=== PATIENT | female | born 1995 | race Two or more races ===

== ENCOUNTER 2017-12-24 23:51 | Emergency (ER) | payer SELFPAY ==
[2017-12-25] MEDS ORDERED: 0.9 % SODIUM CHLORIDE 1000ML 1,000 ML IV SCH (00:15)
[2017-12-25] MEDS ORDERED: SCOPOLAMINE 1 PATCH TDSY TD ONE (00:15)
--- NOTE | 2017-12-25 00:24 | Emergency Department Record ---
History of Present Illness - General Chief complaint: Vomiting Stated complaint: VOMITTING Time Seen by Provider: 12/25/17 00:14 Source: Patient Mode of Arrival: Ambulatory Limitations: No limitations - History of Present Illness Initial comments: 22 yo female presents to ED for evaluation of suprapubic pain and vaginal discharge following recent evaluation in [place] for similar symptoms. Patient reports that her PCP started her on Flagyl and Doxycycline 8 days ago for her symptoms but was seen in [place] for dysuria symptoms and vaginal discharge symptoms as well, pelvic was not performed, and CT Abdomen/Pelvis demonstrated "swelling of the pancreas". Patient reports miscarriage 7-8 weeks ago without retained POC, and patient also reports history of katelynn-fundoplication "that didn't go well resulting in intermittent pancreatitis". MD complaint: Abdominal pain Onset/Timin -: Days(s) Associated Abdominal Pain: Yes Location: Other Severity: Moderate Quality: Cramping Consistency: Constant Improves with: None Worsens with: None Context: History of abdominal surgery, Recent anitbiotic use Associated Symptoms: Denies other symptoms - Related Data Previous Rx's Medication Instructions Recorded Promethazine HCl [Phenergan] 25 mg PO Q8H PRN #10 tablet 12/25/17 Allergies Allergy/AdvReac Type Severity Reaction Status Date / Time amoxicillin Allergy RASH Verified 12/25/17 00:08 ketorolac [From Toradol] Allergy SWELLING Verified 12/25/17 00:08 (GENERAL) latex Allergy RASH Verified 12/25/17 00:08 ondansetron [From Zofran] Allergy SWELLING Verified 12/25/17 00:08 (GENERAL) Penicillins Allergy RASH Verified 12/25/17 00:08 Sulfa (Sulfonamide Allergy RASH Verified 12/25/17 00:08 Antibiotics) metoclopramide [From Reglan] AdvReac Anxiety Verified 12/25/17 00:08 Attack IV Contrast Allergy RASH Uncoded 12/25/17 00:08 Review of Systems Constitutional: Denies: Chills, Fever, Malaise, Night sweats Eyes: Denies: Eye discharge, Eye pain ENT: Denies: Congestion, Ear pain, Epistaxis Respiratory: Denies: Cough, Dyspnea Cardiovascular: Denies: Chest pain, Dyspnea on exertion Endocrine: Denies: Fatigue, Heat or cold intolerance Gastrointestinal: Reports: Abdominal pain, Nausea, Vomiting. Denies: Constipation Genitourinary: Reports: Discharge, Dysuria. Denies: Frequency, Hematuria, Incontinence, Retention Musculoskeletal: Denies: Arthralgia, Back pain, Gout, Joint swelling Skin: Denies: Bruising, Change in color Neurological: Denies: Abnormal gait, Confusion Psychiatric: Denies: Anxiety Hematological/Lymphatic: Denies: Anemia, Blood Clots Physical Exam - General General Appearance: Alert, Oriented x3, Cooperative, Mild distress, Anxious, Other (tearful on examination) Limitations: No limitations - Head Head exam: Atraumatic, Normocephalic, Normal inspection Head exam detail: negative: Abrasion, Contusion, Collado's sign, General tenderness, Hematoma, Laceration - Eye Eye exam: Normal appearance. negative: Conjunctival injection, Periorbital swelling, Periorbital tenderness, Scleral icterus - ENT Ear exam: negative: Auricular hematoma, Auricular trauma Nasal Exam: negative: Active bleeding, Discharge, Dried blood, Foreign body Mouth exam: negative: Drooling, Laceration, Muffled voice, Tongue elevation - Neck Neck exam: Normal inspection. negative: Meningismus, Tenderness - Respiratory Respiratory exam: Normal lung sounds bilaterally. negative: Rales, Respiratory distress, Rhonchi, Stridor - Cardiovascular Cardiovascular Exam: Regular rate, Normal rhythm, Normal heart sounds - GI/Abdominal GI/Abdominal exam: Soft, Tenderness, Other (TTP over the suprapubic region on examination.). negative: Rebound, Rigid - Rectal Rectal exam: Deferred - exam: Vaginal discharge. negative: Vaginal bleeding, Vaginal erythema - Extremities Extremities exam: Normal inspection. negative: Calf tenderness, Pedal edema, Tenderness - Back Back exam: Denies: CVA tenderness (R), CVA tenderness (L) - Neurological Neurological exam: Alert, Normal gait, Oriented X3 - Psychiatric Psychiatric exam: Normal affect, Normal mood - Skin Skin exam: Normal color. negative: Abrasion Type of lesion: negative: abrasion Course Vital Signs 12/25/17 00:04 Temperature 98.7 F Pulse Rate [ 89 Pulse Ox Probe] Respiratory 18 Rate Blood Pressure 139/109 [Left Arm] Pulse Ox 100 - Reevaluation(s) Reevaluation #1: 12/25/17 00:55 Previous records from [place] 12/21/17 were reviewed, CT imaging performed to exclude appendicitis. CT Abdomen and Pelvis 12/21/17 Minimal peripancreatic fat infiltration consistent with mild pancreatitis No psuedocyst formation or pancreatic necrosis Reevaluation #2: 12/25/17 01:25 Labs reviewed and are grossly unremarkable for an acute process. Pelvic examination was reviewed, mild whitish discharge is present. Repeat abdominal examination fails to demonstrate an acute process, and repeat CT imaging is not felt to be of benefit at this time. Will reassess following Pelvic results. Reevaluation #3: 12/25/17 01:42 Pelvic examination was reviewed, positive for Clue Cells (patient is taking Flagyl currently). MDM Patient was updated on all results, and on examination becomes noticeably calmer with a benign repeat abdominal examination. Based on the patient's repeat examination, recent negative CT Abdomen and Pelvis 3 days prior, and negative laboratory evaluation other than clue cells on pelvic examination. Patient is currently taking Flagyl for her infection, but reports that she has not been able to keep her medication down due to vomiting. Will prescribe Phenergan as needed for nausea symptoms with instructions to continue her Flagyl as prescribed. Repeat CT imaging does not appear indicated given her repeat examination and recent negative imaging. US is not currently available nor do I feel would be of benefit for transfer specifically for US imaging given the patient's history and examination. There is no clinical evidence for ovarian torsion as the source of her pain symptoms based on her history of symptoms and examination and no significant cyst visualized on CT to predispose the patient for torsion. Similarly, PID does not appear likely based on the patient's examination and her current treatment with Doxycycline. Patient appears stable for discharge at this time with instructions to follow- up with her PCP in 1-3 days for further evaluation. Medical Decision Making - Lab Data Result diagrams: 12/25/17 00:35 12/25/17 00:35 Disposition Disposition: Discharge Clinical Impression: Pelvic pain Disposition: Home, Self-Care Condition: (2) Stable Instructions: Pelvic Pain in Women (ED) Additional Instructions: Return to ED if your symptoms worsen or if you have any concerns. Phenergan as directed. Follow-up with your family doctor in 1-3 days as directed. Prescriptions: Promethazine HCl [Phenergan] 25 mg PO Q8H PRN #10 tablet PRN Reason: Nausea/Vomiting Forms: Patient Portal Access Time of Disposition: 01:55 Quality - Quality Measures Quality Measures: N/A - Blood Pressure Screening Does Patient Have Any of the Following: No Blood Pressure Classification: Hypertensive Reading Systolic Measurement: 139 Diastolic Measurement: 109 Screening for High Blood Pressure: < First Hypertensive BP, F/U Documented > [ [id number]] First Hypertensive Follow-up Interventions: Referral to alternative/primary care provider.
[2017-12-25] MEDS ORDERED: HYOSCYAMINE SULFATE ODT 0.125 MG TAB.SUBL SL ONE (00:38)
[2017-12-25 00:41] LABS: BASO % 0.4 % (0-6); EOS % 1.9 % (0-6); GRAN % 56.8 % (47-80); HEMATOCRIT 40.2 % (35.0-47.0); HEMOGLOBIN 13.3 gm/dl (11.6-16.0); LYMPH % 35.6 % (16-45); MEAN CELL VOLUME 86.6 fl (81-97); MEAN CORPUSCULAR HEMOGLOBIN 28.7 pg (27-33); MEAN CORPUSCULAR HGB CONC 33.1 g/dl (32-36); MEAN PLATELET VOLUME 9.9 fl (7.4-10.4); MONO % 5.3 % (0-9); PLATELET COUNT 316 K/uL (130-400); RED BLOOD COUNT 4.64 M/uL (3.80-5.40); RED CELL DISTRIBUTION WIDTH 13.8 % (11.5-14.5); WHITE BLOOD COUNT W/O DIFF 10.7 K/uL (4.2-12.2)
[2017-12-25 00:42] LABS: URINE APPEARANCE CLEAR; URINE BILIRUBIN SMALL (NEGATIVE); URINE BLOOD NEGATIVE (NEGATIVE); URINE COLOR YELLOW; URINE GLUCOSE (UA) NEGATIVE (NEGATIVE); URINE KETONE TRACE (NEGATIVE); URINE LEUKOCYTE ESTERASE NEGATIVE (NEGATIVE); URINE NITRITE NEGATIVE (NEGATIVE)
[2017-12-25 00:55] LABS: BLOOD UREA NITROGEN 7 mg/dL (6-20); CREATININE 0.6 mg/dL (0.5-0.9); EST GLOMERULAR FILTRATION RATE > 60 mL/min; TOTAL PROTEIN 7.3 g/dL (6.6-8.7)
[2017-12-25 00:57] LABS: GLUCOSE,RANDOM 97 mg/dL (74-109)
[2017-12-25 01:00] LABS: ALB/GLOB RATIO 1.6 (1.1-1.8); ALBUMIN 4.5 g/dL (4.0-5.0); ALKALINE PHOSPHATASE 60 U/L (35-104); ALT/SGPT 9 U/L (<33); AST/SGOT 14 U/L (10.0-35.0); LIPASE 16 U/L (13-60)
[2017-12-25] MEDS ORDERED: ACETAMINOPHEN 1,000 MG/100 ML BTL IVPB ONE (01:28)
[2017-12-25] MEDS ORDERED: PROMETHAZINE HCL 12.5 MG in 0.9 % SODIUM CHLORIDE 100ML 100 ML IVPB ONE (01:36)
[2017-12-25 23:52] LABS: GC SPECIMEN TYPE Cervix
== END 2017-12-25 02:32 | disposition home or self-care (01) ==
LOC: ER 23:51
DX: R10.2 Pelvic and perineal pain (principal); R11.2 Nausea with vomiting, unspecified
CPT/HCPCS: 99283 ×2; 83690; 85025; 80053; 81003; 84703; G0480; Q0111; J1980; 80320; 87210; J2550; J7030